=== PATIENT | female | born 1975 | race Caucasian/White ===

== ENCOUNTER 2018-08-02 11:46 | Emergency (ER) | payer BC, OTHER ==
[~2018-08-02 11:46] MED LIST: AZAT50TA44 PO; CEP500 PO; IBUP-1687 PO; LOR7.5/325 PO; NAP500 PO; ONDA4TAB PO; OXYC-865 PO; PROM-110 PO; TRA50 PO; TRAM-420 PO
--- NOTE | 2018-08-02 11:56 | ER Report ---
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 She thinks it was glass that cut her leg. Last tetn2014. No other injuries or complaints. Remainder of the 14 system rev: Yes Allergies: Coded Allergies: hydrocodone bit (Verified Allergy, Intermediate, SWELLING TO MOUTH, 01/04/17) Home Meds Discontinued Reported Medications Azathioprine (IMURAN) 50 Mg Tablet, 200 MG PO DAILY 04/13/16 Discontinued Scripts Promethazine Hcl (PROMETHAZINE HCL) 25 Mg Tablet, 25 MG PO Q8H PRN for NAUSEA/VOMITING, #20 TAB 0 Refills Prov:HUMBERTO PENA MD 01/04/17 Ondansetron (ZOFRAN ODT) 4 Mg Tab.rapdis, 4 MG PO Q6H PRN for NAUSEA, #20 TAB TAKE 1 TABLET BY MOUTH EVERY 12 HOURS Prov:BIANKA FISCHER MD 01/04/17 Reviewed Nurses Notes: Yes Old Medical Records Reviewed: Yes Hx Smoking: No Smoking Status: Never Smoker Exposure to Second Hand Smoke?: No Hx Substance Use Disorder: No Hx Alcohol Use: No Constitutional Vital Sign - Last 24 Hours 08/02/18 12:15 Temp 97.2 Pulse 90 Resp 16 Pulse Ox 93 O2 Delivery Room Air Physical Exam General Appearance: The patient is alert, has no immediate need for airway protection and no current signs of toxicity. Extremities have full range of motion and are non tender. Skin: 3 cm linear laceration to the RLE, no fb noted DIFFERENTIAL DIAGNOSIS: After history and physical exam differential diagnosis was considered for retained fb, dirty wound, laceration, deep structure injury Medical Decision Making ED Course/Re-evaluation ED Course Uncomplicated linear laceration after cutting her leg likely on glass that was in the trash bag she was emptying. Tetanus is up-to-date. Wound was irrigated and explored for foreign body. No foreign body noted. It was closed with a running suture using 4-0 Ethilon. She will watch for signs of infection, and otherwise have her sutures removed in 5-7 days. Procedure Procedure: Laceration repair. Verbal consent was obtained from the patient. The 3 cm laceration on the RLE was anesthetized in the usual fashion. The wound was scrubbed, draped and explored to its base with a gloved finger. There were no deep structures involved. No tendon injury was identified. The wound was repaired with a running stitch using 4-0 ethilon. The wound repair was simple. The procedure was performed by myself. Decision to Disposition Date: Aug 02, 2018 Decision to Disposition Time: 13:47 Depart Departure Latest Vital Signs Vital Signs Date Time Temp Pulse Resp B/P (MAP) Pulse Ox O2 Delivery O2 Flow Rate FiO2 08/02/18 12:15 97.2 90 16 93 Room Air Impression: Primary Impression: Laceration Condition: Improved Disposition: HOME OR SELF-CARE Referrals: ISAIAS FARFAN PA-C (PCP) Patient Instructions: Laceration (ED) JILLIAN DE OLIVEIRA MD Aug 02, 2018 11:56
[2018-08-02] MEDS ORDERED: TETRACAIN/EPI/LIDO GEL 3ML SYR TP ONE (13:00)
[2018-08-02] MEDS ORDERED: LIDO/EPI 1% MDV 1:100,000 20ML INFIL ONE (13:23)
== END 2018-08-02 14:04 | disposition home or self-care (01) ==
LOC: ER 11:47
DX: S81.811A Laceration without foreign body, right lower leg, initial encounter (principal); W25.XXXA Contact with sharp glass, initial encounter
CPT/HCPCS: 99283